=== PATIENT | male | born 1935 | race Caucasian/White ===

== ENCOUNTER 2020-01-11 12:38 | Emergency (ER) | payer MEDICARE, OTHER ==
[~2020-01-11] VITALS: Ht 157.5 cm; Wt 74.8 kg
--- NOTE | 2020-01-11 12:38 | NUR ---
SANJEEV HALL FROM [facility] DUE TO COUGH AND CHEST CONGESTION, TO ER BED 8, HOOKED TO DRAGLINE OPERATOR, BP CUFF AND POX, VSS. CHANGED TO HOSP GOWN, WARM BLANKET PROVIDED, PATIENT AAO x 2, AWAITING MD HARDING
--- NOTE | 2020-01-11 12:45 | NUR ---
DR BUCHANAN AT BEDSIDE
[2020-01-11 13:12] LABS: BASOPHILS # (AUTO) 0.1 /CMM (0.0-0.2); BASOPHILS % (AUTO) 1.1 % (0.0-2.0); EOSINOPHILS % (AUTO) 4.8 % (0.0-6.0); HEMATOCRIT 36 % (39-51); HEMOGLOBIN 11.8 g/dL (13.5-17.5); LYMPHOCYTES % (AUTO) 14.7 % (20.0-44.0); MEAN CORPUSCULAR HGB CONC 33 g/dl (31.0-36.0); MEAN CORPUSCULAR VOLUME 91 fL (80-96); MONOCYTES # (AUTO) 0.7 /CMM (0.1-1.30); MONOCYTES % (AUTO) 9.8 % (2.0-12.0); NEUTROPHILS # (AUTO) 4.9 /CMM (1.8-8.9); NEUTROPHILS % (AUTO) 69.6 % (43.0-81.0); PLATELET COUNT (AUTO) 227 /CMM (150-450); RED BLOOD CELL COUNT(AUTO) 3.95 MIL/uL (4.5-6.0); WHITE BLOOD COUNT (AUTO) 7.1 K/uL (4.3-11.0)
[2020-01-11 13:28] LABS: CALCIUM, SERUM 8.6 mg/dL (8.5-10.1); CARBON DIOXIDE 28 mmol/L (21-32); CHLORIDE 104 mmol/L (98-107); CREATININE 1.5 mg/dL (0.6-1.3); GLUCOSE 162 mg/dL (74-106); POTASSIUM 3.7 mmol/L (3.5-5.1); SODIUM SERUM 140 mmol/L (136-145); UREA NITROGEN, BLOOD 18 mg/dL (7-18)
[2020-01-11 13:30] LABS: APPEARANCE,URINE Clear (CLEAR); BILIRUBIN,URINE Negative (NEGATIVE); BLOOD, URINE Trace-intact Ery/uL (NEGATIVE); COLOR,URINE Yellow (YELLOW); KETONES,URINE Negative (NEGATIVE); LEUKOCYTE ESTERASE ,URINE Negative (NEGATIVE); NITRITE, URINE Negative (NEGATIVE); PROTEIN,URINE Negative (NEGATIVE); UGLUCOSE Negative (NEGATIVE); UROBILINOGEN,URINE 0.2 EU/dL (0.2)
[2020-01-11 13:34] LABS: RBC,URINE 0-2 /HPF (0-2); WBC,URINE 0-2 /HPF (0-3)
[2020-01-11 13:35] LABS: BACTERIA,URINE Rare /HPF (None Seen); SQUAMOUS EPITHELIAL CELL,UR Rare /HPF (None Seen)
[2020-01-11 13:35] LABS: ALANINE AMINOTRANSFERASE 22 U/L (12-78); ALBUMIN 2.7 g/dL (3.4-5.0); ALKALINE PHOSPHATASE 71 U/L (46-116); ASPARTATE AMINOTRANSFERASE 19 U/L (15-37); B-TYPE NATRIURETIC PEPTIDE 691 PG/ML (0-125); BILIRUBIN,DIRECT 0.1 mg/dL (0.0-0.2); BILIRUBIN,TOTAL 0.3 mg/dL (0.2-1.0); TOTAL PROTEIN, SERUM 6.5 g/dL (6.4-8.2)
[2020-01-11] MEDS ORDERED: ASCO-373 PO (14:09)
[2020-01-11] MEDS ORDERED: INSU100I26 SQ (14:09)
[2020-01-11] MEDS ORDERED: LISI10TA5 PO (14:09)
[2020-01-11] MEDS ORDERED: ASPI-1169 PO (14:09)
[2020-01-11] MEDS ORDERED: CALC-864 PO (14:09)
[2020-01-11] MEDS ORDERED: SIMV10TA98 PO (14:09)
[2020-01-11] MEDS ORDERED: ACET325T53 PO (14:09)
[2020-01-11] MEDS ORDERED: RISP0.5T20 PO (14:09)
[2020-01-11] MEDS ORDERED: AMLO5TAB4 PO (14:09)
[2020-01-11] MEDS ORDERED: MULT-439 PO (14:09)
[2020-01-11] MEDS ORDERED: SERT50TA12 PO (14:09)
[2020-01-11] MEDS ORDERED: LINA5TAB PO (14:09)
[2020-01-11] MEDS ORDERED: IPRA0.2S49 IH (14:09)
[2020-01-11] MEDS ORDERED: DEXT15LI PO (14:12)
[2020-01-11] MEDS ORDERED: LORA-259 PO (14:12)
[2020-01-11] MEDS ORDERED: ALBU6.7H9 IH (14:12)
--- NOTE | 2020-01-11 14:20 | NUR ---
PAGED DR OG , WAITING FOR CALL BACK
[2020-01-11] MEDS ORDERED: FUROSEMIDE 20 MG/2 ML VIAL IV ONE (14:30)
[2020-01-11] MEDS ORDERED: FUROSEMIDE 20 MG/2 ML VIAL ONE (14:33)
--- NOTE | 2020-01-11 14:46 | NUR ---
BED ASSIGNED= 201
--- NOTE | 2020-01-11 15:01 | NUR ---
REPORT GIVEM TO CONCEPCION AKBAR OF MS UNIT
--- NOTE | 2020-01-11 15:06 | NUR ---
PER DR BUCHANAN, SPOKE TO DR OG AND HE DECIDED THE PATIENT TO GO HOME. MADE HOUSE SUP AND ADMITTING DEPT AWARE
--- NOTE | 2020-01-11 15:17 | NUR ---
CALLED JANEL ALVARADO FOR BLS METAL DEALER TO RETURN PT TO [facility]IDENCE 1630 ETA Addendum: 01/11/20 at 1518 by SHERLY ETA 1730
--- NOTE | 2020-01-11 15:20 | NUR ---
SPOKE TO [employer] REPORT DEVELOPER OF PATIENT FROM DUNCAN CONROY, AWARE PATIENT IS BEING SENT BACK
--- NOTE | 2020-01-11 17:22 | NUR ---
IV removed. Catheter intact and site benign. Pressure and 4x4 applied to site. No bleeding noted.
--- NOTE | 2020-01-11 17:27 | NUR ---
PATIENT ICKED UP BY [facility] UNIT 21 IN STABLE CONDITION. PATIENT WILL BE BROUGHT BACK TO FACILITY. DC PAPER AND CLINICALS PROVIDED TO EMT TO BE GIVEN TO DUNCAN CONROY.
[2020-01-11 17:29] VITALS: BP 155/95
== END 2020-01-11 17:35 ==
LOC: ER 12:42 → TELE2 14:48 → UNDOADMIN 14:48 → ER 17:35
DX: I50.9 Heart failure, unspecified (principal); E11.319 Type 2 diabetes mellitus with unspecified diabetic retinopathy without macular edema; J44.9 Chronic obstructive pulmonary disease, unspecified; Z79.899 Other long term (current) drug therapy; Z79.4 Long term (current) use of insulin; R60.0 Localized edema; N28.9 Disorder of kidney and ureter, unspecified; R91.8 Other nonspecific abnormal finding of lung field; R94.31 Abnormal electrocardiogram [ECG] [EKG]; Z20.828 Contact with and (suspected) exposure to other viral communicable diseases
CPT/HCPCS: 36415; 71045; 76604; 80048; 80076; 81001; 83605; 83880; 84145; 84484; 85025; 85730; 87040 ×2; 87081; 87086; 93005; 93308; 96374; 99285; J1940; 81000-TC; C9803-CS; U0003-CS